=== PATIENT | female | born 1930 | race Caucasian/White ===

== ENCOUNTER 2018-05-25 19:57 | Emergency (ER) | payer MEDICARE, OTHER ==
[~2018-05-25] VITALS: Ht 152.4 cm; Wt 46.9 kg
[~2018-05-25 19:57] MED LIST: AMLODIPINE BESY10 MG PO; ASPIRIN EC325 MG PO; COZAAR100 MG PO; FUROSEMIDE20 MG PO; GABAPENTIN100 MG PO; HEARTBURN RELIE75 M1 PO; IPRAT-ALBUT 0.5-3 ML INH; KLOR-CON20 MEQ PO; LASIX40 MG PO; LATANOPROST2.5 ML OPTH; LOVASTATIN40 MG PO; MACULAR HEALTH1 EACH PO; METAMUCIL0.4 GM PO; METOPROLOL SUCC25 MG PO; METOPROLOL SUCC50 MG PO; MIRALAX17 GM PO; MULTIVITAMINS1 EAC7 PO; NITROGLYCERIN0.4 MG SL; NORCO 5-325 TA1 EACH PO; OMEPRAZOLE20 MG PO; PLAVIX75 MG PO; POTASSIUM CHLO10 MEQ PO; POTASSIUM CHLO20 ME1 PO; SLO-NIACIN500 MG PO; TOPICAINE113 GM TOP; TYLENOL WITH C1 EACH PO; VENTOLIN HFA18 GM INH; VITAMIN D-32000 UNIT PO; VITAMIN D22000 UNIT PO
--- OUTSIDE RECORDS SUMMARY | 2018-05-25 21:38 | XMS ---
PreManage Notification: SURESH SALAZAR Security Preflight Inspector Events No recent Security Events currently on file CRITERIA MET - [facility] - 2 Visits in 30 Days CARE PROVIDERS Alvino Alston DO Primary Care Current PHONE: Unknown Other Current PHONE: Unknown BERTHA ALSTON Primary Care Current PHONE: [phone] [place] has no Care Guidelines for this patient. [facility] MO.) [facility] TOTAL 2 NOTE: Visits indicate total known visits. ED/UCC VISIT TRACKING (12 MO.) 05/25/2018 19:58 [facility] [place] TYPE: Emergency COMPLAINT: - ABNORMAL LABS [facility] INPATIENT VISIT TRACKING (12 MO.) No inpatient visits to display in this time frame [email or web address]
--- NOTE | 2018-05-25 22:19 | EKG ---
[facility] [address] [place], [place] [address] Signed Normal sinus rhythm Cannot rule out Inferior infarct , age undetermined Abnormal ECG No previous ECGs available Confirmed by BOBY AVILA DO ([id number]) on 05/25/2018 10:19:13 PM Electronically Signed By: BOBY AVILA DO 05/25/18 2219 PATIENT NAME: SURESH SALAZAR OCTOBER Electrocardiogram DATE OF : [birth year] PHYSICIAN: BOBY AVILA DO REPORT #: [id number] REPORT IS CONFIDENTIAL AND NOT TO BE RELEASED WITHOUT AUTHORIZATION
== END 2018-05-25 22:01 | disposition short-term general hospital (02) ==
LOC: ED 19:57
PROC: 0T9B70Z Drainage of Bladder with Drainage Device, Via Natural or Artificial Opening (ICD-10-PCS; principal; 2018-05-25)
DX: I21.4 Non-ST elevation (NSTEMI) myocardial infarction (principal); I95.9 Hypotension, unspecified; I13.10 Hypertensive heart and chronic kidney disease without heart failure, with stage 1 through stage 4 chronic kidney disease, or unspecified chronic kidney disease; N18.9 Chronic kidney disease, unspecified; Z95.5 Presence of coronary angioplasty implant and graft; Z95.0 Presence of cardiac pacemaker; Z85.118 Personal history of other malignant neoplasm of bronchus and lung; Z87.891 Personal history of nicotine dependence; Z88.1 Allergy status to other antibiotic agents; Z79.82 Long term (current) use of aspirin; Z79.899 Other long term (current) drug therapy
CPT/HCPCS: 51702; 71045; 80053; 81001; 84484; 85025; 85610; 85730; 93005; 93010; 96361; 96374; 99285-25; J1650; J7030

== ENCOUNTER 2018-08-22 11:21 | Emergency (ER) | payer MEDICARE, OTHER ==
[~2018-08-22] VITALS: Ht 152.4 cm; Wt 48.5 kg
[2018-08-22] MEDS ORDERED: CARVEDILOL12.5 MG PO (12:04)
[2018-08-22] MEDS ORDERED: FUROSEMIDE20 MG PO (12:04)
== END 2018-08-22 14:44 | disposition home or self-care (01) ==
LOC: ED 11:21
DX: I65.21 Occlusion and stenosis of right carotid artery (principal); I12.9 Hypertensive chronic kidney disease with stage 1 through stage 4 chronic kidney disease, or unspecified chronic kidney disease; N18.9 Chronic kidney disease, unspecified; Z87.891 Personal history of nicotine dependence; Z88.1 Allergy status to other antibiotic agents; Z79.899 Other long term (current) drug therapy; Z79.82 Long term (current) use of aspirin
CPT/HCPCS: 99283

== ENCOUNTER 2018-10-29 13:09 | Emergency (ER) | payer MEDICARE, OTHER ==
[~2018-10-29] VITALS: Ht 152.4 cm; Wt 48.7 kg
[~2018-10-29 13:09] MED LIST changes: -AMLODIPINE BESY10 MG PO; +AMLODIPINE BESYL5 MG PO; -ASPIRIN EC325 MG PO; +ASPIRIN EC81 MG PO; +CARVEDILOL12.5 MG PO
[2018-10-29] MEDS ORDERED: ELIQUIS2.5 MG PO (13:20)
[2018-10-29] MEDS ORDERED: PAIN & FEVER500 MG PO (13:27)
[2018-10-29] MEDS ORDERED: GABAPENTIN100 MG PO (16:21)
== END 2018-10-29 17:48 | disposition home or self-care (01) ==
LOC: ED 13:09
DX: G44.89 Other headache syndrome (principal); M48.02 Spinal stenosis, cervical region; I10 Essential (primary) hypertension; I12.9 Hypertensive chronic kidney disease with stage 1 through stage 4 chronic kidney disease, or unspecified chronic kidney disease; N18.4 Chronic kidney disease, stage 4 (severe); Z95.0 Presence of cardiac pacemaker; Z95.5 Presence of coronary angioplasty implant and graft; Z85.118 Personal history of other malignant neoplasm of bronchus and lung; Z85.828 Personal history of other malignant neoplasm of skin; Z88.1 Allergy status to other antibiotic agents; Z79.01 Long term (current) use of anticoagulants; Z79.82 Long term (current) use of aspirin; Z79.899 Other long term (current) drug therapy
CPT/HCPCS: 70450; 72125; 80053; 81001; 85025; 99284-25

== ENCOUNTER 2018-10-30 00:43 | Emergency (ER) | payer MEDICARE, OTHER ==
[~2018-10-30] VITALS: Ht 152.4 cm; Wt 48.7 kg
[~2018-10-30 00:43] MED LIST changes: +ELIQUIS2.5 MG PO; -LATANOPROST2.5 ML OPTH; +LATANOPROST2.5 ML OU; +PAIN & FEVER500 MG PO
--- OUTSIDE RECORDS SUMMARY | 2018-10-30 00:46 | XMS ---
PreManage Notification: SURESH SALAZAR Security Final Cleaner Events No recent Security Events currently on file CRITERIA MET - [facility] - 2 Visits in 30 Days CARE PROVIDERS Alvino Tavarez DO Primary Care Current PHONE: Unknown Other Current PHONE: Unknown ALECIA STONE Primary Care Current PHONE: Unknown [place] has no Care Guidelines for this patient. Ismael VISIT COUNT (12 MO.) 1 [facility] 4 CADEN Gomez TOTAL 5 NOTE: Visits indicate total known visits. ED/UCC VISIT TRACKING (12 MO.) 10/30/2018 00:43 [facility] [place] TYPE: Emergency COMPLAINT: - HEADACHE 10/29/2018 13:09 [facility] [place] TYPE: Emergency COMPLAINT: - HEAD PAIN/NO INJURY 08/22/2018 11:22 [facility] [place] TYPE: Emergency COMPLAINT: - CAROTID THROMBOSIS DIAGNOSES: - Occlusion and stenosis of right carotid artery - Hypertensive chronic kidney disease with stage 1 through stage 4 chronic kidney disease, or unspecified chronic kidney disease - Allergy status to other antibiotic agents status - Personal history of nicotine dependence - Occlusion and stenosis of unspecified carotid artery - Occlusion and stenosis of right carotid artery - halfway (current) use of aspirin - Chronic kidney disease, unspecified - Other retirement (current) drug therapy 05/25/2018 23:07 [facility] TYPE: Emergency DIAGNOSES: - Abnormal Labs - Hypotension 05/25/2018 19:58 [facility] [place] TYPE: Emergency COMPLAINT: - ABNORMAL LABS DIAGNOSES: - Presence of coronary angioplasty implant and graft - Other retirement (current) drug therapy - Personal history of other malignant neoplasm of bronchus and lung - Non-ST elevation (NSTEMI) myocardial infarction - Weakness - Hypotension, unspecified - Hypertensive heart and chronic kidney disease without heart failure, with stage 1 through stage 4 chronic kidney disease, or unspecified chronic kidney disease - Allergy status to other antibiotic agents status - 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
--- NOTE | 2018-10-30 07:41 | EKG ---
[facility] [address] [place] [address] Signed Normal sinus rhythm ST \T\ T wave abnormality, consider inferior ischemia Prolonged QT Abnormal ECG When compared with ECG of 25-MAY-2018 20:03, No significant change was found Confirmed by MICHELINE SIBLEY MD ([id number]) on 10/30/2018 7:41:45 AM Electronically Signed By: MICHELINE SIBLEY MD 10/30/18 0741 PATIENT NAME: SURESH SALAZAR OCTOBER Electrocardiogram DATE OF : [birth year] PHYSICIAN: MICHELINE SIBLEY MD REPORT #: [id number] REPORT IS CONFIDENTIAL AND NOT TO BE RELEASED WITHOUT AUTHORIZATION
== END 2018-10-30 03:17 | disposition home or self-care (01) ==
LOC: ED 00:43
DX: M47.892 Other spondylosis, cervical region (principal); M48.02 Spinal stenosis, cervical region; I12.9 Hypertensive chronic kidney disease with stage 1 through stage 4 chronic kidney disease, or unspecified chronic kidney disease; N18.4 Chronic kidney disease, stage 4 (severe); Z85.828 Personal history of other malignant neoplasm of skin; Z95.0 Presence of cardiac pacemaker; Z95.5 Presence of coronary angioplasty implant and graft; Z85.118 Personal history of other malignant neoplasm of bronchus and lung; Z88.1 Allergy status to other antibiotic agents; Z79.899 Other long term (current) drug therapy; Z79.82 Long term (current) use of aspirin
CPT/HCPCS: 85651; 93005; 93010; 99284-25

== ENCOUNTER 2018-11-06 08:43 | Inpatient (IN) | payer MEDICARE, OTHER ==
[~2018-11-06] VITALS: Ht 152.4 cm; Wt 49.5 kg
--- OUTSIDE RECORDS SUMMARY | 2018-11-06 08:46 | XMS ---
PreManage Notification: SURESH SALAZAR Security Pot Puller Events No recent Security Events currently on file CRITERIA MET - 6 ED Visits in 6 Months - [facility] - 2 Visits in 30 Days CARE PROVIDERS FAREED POSADA [facility] 10/30/2018-Current PHONE: Unknown Alvino Tavarez DO Primary Care Current PHONE: Unknown Harshil Current PHONE: Unknown ALECIA STONE Primary Care Current PHONE: Unknown [place] has no Care Guidelines for this patient. Ismael VISIT COUNT (12 MO.) 1 [facility] 5 CADEN Gomez TOTAL 6 NOTE: Visits indicate total known visits. ED/UCC VISIT TRACKING (12 MO.) 11/06/2018 08:43 [facility] [place] TYPE: Emergency COMPLAINT: - WEAKNESS 10/30/2018 00:43 [facility] [place] TYPE: Emergency COMPLAINT: - HEADACHE 10/29/2018 13:09 [facility] [place] TYPE: Emergency COMPLAINT: - HEAD PAIN/NO INJURY DIAGNOSES: - Chronic kidney disease, stage 4 (severe) - Presence of cardiac pacemaker - technician terminal and repeater (current) use of aspirin - technician terminal and repeater (current) use of anticoagulants - Presence of coronary angioplasty implant and graft - Headache - Personal history of other malignant neoplasm of skin - Other long-term (current) drug therapy - Essential (primary) hypertension - Spinal stenosis, cervical region - Hypertensive chronic kidney disease with stage 1 through stage 4 chronic kidney disease, or unspecified chronic kidney disease - Allergy status to other antibiotic agents status - Other headache syndrome - Personal history of other malignant neoplasm of bronchus and lung 08/22/2018 11:22 [facility] [place] TYPE: Emergency [...] and stenosis of right carotid artery - senior living (current) use of aspirin - Chronic kidney disease, unspecified - Other terminal superintendent (current) drug therapy 05/25/2018 23:07 [facility] TYPE: Emergency DIAGNOSES: - Abnormal Labs - Hypotension 05/25/2018 19:58 [facility] TYPE: Emergency COMPLAINT: - ABNORMAL LABS DIAGNOSES: - Presence of coronary angioplasty implant and graft - Other long-term (current) drug therapy - Personal history of other malignant neoplasm of bronchus and lung - Non-ST elevation (NSTEMI) myocardial infarction - Weakness - Hypotension, unspecified - Hypertensive heart and chronic kidney disease without heart failure, with stage 1 through stage 4 chronic kidney disease, or unspecified chronic kidney disease - Allergy status to other antibiotic agents status - technician terminal and repeater (current) use of aspirin - Personal history of nicotine dependence - Chronic kidney disease, unspecified - Presence of cardiac pacemaker INPATIENT VISIT TRACKING (12 MO.) 05/25/2018 23:07 [facility] TYPE: General Medicine DIAGNOSES: - Hypotension - Dehydration - Non-ST elevation (NSTEMI) myocardial infarction - Abnormal Labs - Hypotension, unspecified - Weakness - Nonspecific elevation of levels of transaminase and lactic acid dehydrogenase [LDH] [email or web address]
--- NOTE | 2018-11-06 14:04 | NUR ---
New admit to the floor. Pt drowsy, confused to place and situation. Vital signs are stable at this time. PT is on ra, resp non labored. PT has notable large red ring the shape of a toilet seat around her posterior thigh and buttock region. Per report pt was found on the toilet seat in her room at this facility in which she resides. Oriented pt to room and call light. Bed alarm intact. Personal supplies and call light within reach. No further needs.
--- NOTE | 2018-11-06 14:16 | NUR ---
SAW PT AND DAUGHTER IN ED EXAM ROOM THIS MORNING. SPOKE AGAIN WITH DAUGHTER CALLIE WALLER [phone] TO MEDICAL FLOOR. DISCUSSED AGAIN THAT DISCHARGE PLAN WILL BE BASED ON WHAT THEY WANT AND HOW SHE DOES HERE. WE DISCUSSED AGAIN POSSIBLE REHAB, HOME HEALTH OR CAREGIVERS. PROVIDED HER CHW CONTACT INFO. ALSO GAVE DAUGHTER HELPING HANDS IN-HOME CARE BROCHURE. QUESTIONS ANSWERED. SPOKE WITH PATIENT IN ROOM. SHE IS AWAKE, KNOWS SHE WAS CONFUSED EARLIER. IS NOW AWARE OF WHERE SHE IS AFTER ASKING STAFF. DR AVIAL ALSO IN AND SPOKE WITH PATIENT AND DAUGHTER. QUESTIONS ANSWERED. DISCUSSED THAT TOP LIFT COMPRESSER SANDEE HOYOS WILL BE SEEING HER GOING FORWARD, ALSO.
--- NOTE | 2018-11-06 16:13 | EKG ---
[facility] [address] [place] [address] Signed Normal sinus rhythm Inferior infarct , age undetermined T wave abnormality, consider lateral ischemia Abnormal ECG When compared with ECG of 30-OCT-2018 00:59, Inferior infarct is now present T wave inversion now evident in Anterior leads Confirmed by BOBY AVILA DO ([id number]) on 11/06/2018 4:13:26 PM Electronically Signed By: BOBY AVILA DO 11/06/18 1613 PATIENT NAME: SURESH SALAZAR OCTOBER Electrocardiogram DATE OF : [birth year] PHYSICIAN: BOBY AVILA DO REPORT #: [id number] REPORT IS CONFIDENTIAL AND NOT TO BE RELEASED WITHOUT AUTHORIZATION
[2018-11-06] MEDS ORDERED: ADVAIR HFA 115-12 GM INH (17:42)
[2018-11-06] MEDS ORDERED: POTASSIUM CHLO10 MEQ PO (17:51)
[2018-11-06] MEDS ORDERED: CARVEDILOL25 MG PO (17:52)
[2018-11-06] MEDS ORDERED: ASPERCREME76.5 GM TOP (17:56)
--- NOTE | 2018-11-06 19:00 | NUR ---
SHIFT REPORT RECEIVED. PATIENT SITTING UP RIGHT IN BED EATING DINNER. LAB IN ROOM FOR BLOOD DRAW. PATIENT DENIES NEEDS. CALL LIGHT IN REACH.
--- NOTE | 2018-11-06 19:12 | NUR ---
CHARGE NURSE REPORT. PT SITTING UP IN BED EATING DINNER, STATES SHE FEELS BETTER SINCE ARRIVING TO M/S FLOOR.
--- NOTE | 2018-11-06 21:30 | NUR ---
EVENING DOSE OF SENNA OFFERED TO PATIENT, SHE DECLINED STATING "I'VE WENT A COUPLE TIMES TODAY". PATIENT IS ORIENTED TO HERSELF, SURROUDNINGS, AND EVENINGS AFTER ARRIVING AT THE ED. UNSURE OF EVENTS PRIOR TO ARRIVAL. PATIENT REPORTS GENERALIZED PAIN, DENIES PRN TYLENOL. NO GI UPSET, BOWEL SOUNDS ACTIVE. 2+ EDEMA NOTED IN YVONNE LOWER EXTREMITIES. ELEAVTED ON PILLOW. PATIENT DECLINED ANY NEEDS. CALL LIGHT IN REACH.
--- NOTE | 2018-11-06 22:00 | NUR ---
DR. AVILA IN ROOM. MANUAL BP ON RIGHT ARM 80/54. ORDERS FOR IV FLUID BOLUS RECEIVED. IV SITE LEAKING ON LEFT AC. NEW SITE PLACED IN RIGHT UPPER ARM. PATIENT REPORTS DIFFICULT WITH ACCURATE BP IN HER RIGHT ARM. MANUAL BP ON LEFT ARM, 145/40. ORDERS TO FINISH BOLUS AND THEN CONTINUE FLUID AT 100ML/HR. PATIENT TALKING WITH MD APPEARED TO HAVE A BETTER UNDERSTANDING OF HER CURRENT STATE, REPORTING THAT SHE KNEW SHE WAS CONFUSED AND WAS VERY WEAK FOR SEVERAL DAYS PRIOR TO ADMISSION. ORIENTED TO PERSON, PLACE AND EVENT. PATIENT REQUEST ASSISTANCE TO THE BSC. CREDENTIALING SPECIALIST AND JERMAN KEITA IN ROOM TO ASSIT. PATIENT IS WEAK AND REQUIRES A 2PA TO STAND AND PIVOT WITH FWW. PATIENT RETURNED TO BED. WARM BLANKET PROVIDED. CALL LIGHT IN REACH.
--- NOTE | 2018-11-06 22:45 | NUR ---
STRUCTURAL STEEL ENGINEER DELIVERED FLAGYL MIXED AFTER PHARMACY HOURS. PATIENT SLEEPING SOUNDLY. DOES NOT WAKE WHILE RN STARTED IV ABX. PATIENT THEN WOKEN WITH PHYSICAL AND VERBAL STIMULI TO TAKE PO MEDS. PATIENT WAS ABLE TO PULL HERSELF INTO SITTING POSITION AND TOLERATED THE PILL WITHOUT DIFFICULTY. PATIENT DENIES ANY FURTHER NEEDS. CALL LIGHT IN REACH.
--- NOTE | 2018-11-07 01:00 | NUR ---
IV ABX INFUSING WITH CONTINUOUS IV FLUIDS, SITE WNL. PATIENT SLEEPING SOUNDLY. RR18. CALL LIGHT IN REACH.
--- NOTE | 2018-11-07 02:58 | NUR ---
PATIENT UP TO BSC WITH 2PA. PATIENT WEAK AND UNSTEADY ON HER FEET. PATIENT HAD SMALL BM. ASSISTED BACK INTO BED. PATIENT REPORTS HER HIPS ARE PAINFUL WITH MOVEMENT. ASSESSED AREA AND NO OBVIOUS SIGNS OF INJURY. REPOSITIONED PATIENT FOR COMFORT. PATIENT STATES "IT'S BETTER WHEN I'M LAYING DOWN". OFFERED PRN TYLENOL, PATIENT DECLINED. ROTOR WINDER IN ROOM FOR VS. CALL LIGHT IN REACH.
--- NOTE | 2018-11-07 05:00 | NUR ---
PATIENT APPEARED TO BE SLEEPING SOUNDLY. WOKE EASILY TO VOICE. PATIENT ORIENTED X4. REPORTS FEELING VERY TIRED BUT DENIES PAIN. ALLOWED PATIENT TO REST. IV FLUIDS PER ORDER. SITE WNL. CALL LIGHT IN REACH.
--- NOTE | 2018-11-07 06:54 | NUR ---
PATIENT SLEPT MOST OF THE SHIFT. IV FLUIDS PER ORDER, MINIMAL OUTPUT. VS STABLE. PATIENT ORIENTED X4 THIS MORNING. HEAVY 2 PERSON ASSIST TO BSC. REGULAR DIET. RIGHT ARM RESTRICTED FOR BP.
--- NOTE | 2018-11-07 07:34 | NUR ---
RECIEVED REPORT FROM ROMAIN ARMENDARIZ. PT RESTING QUIETLY WITH EYES CLOSED IN BED, EASILY AROUSABLE. CALL LIGHT WITHIN REACH.
--- NOTE | 2018-11-07 08:34 | NUR ---
PT ALERT AND ORIENTED X3, ABLE TO TELL US THAT SHE IS IN A HOSPITAL BUT UNABLE TO TELL US LOCATION. ALL OTHER QUESTIONS ANSWERED CORRECTLY. PT BELIEVES THAT HER CONFUSION WAS CAUSED BY MIXED MEDICATIONS THAT SHE IS ON. SENNA AND MIRALAX HELD DUE TO MULTIPLE BOWEL MOVEMENTS THIS AM. PT DECLINES BREAKFAST BUT ACCEPTED AND DRANK A SUPPLMENT DRINK. PT UP TO CHAIR AT THIS TIME. CALL LIGHT WITHIN REACH.
--- NOTE | 2018-11-07 10:45 | NUR ---
PT HAS LINDA AND ERIN RUNNING. VERIFIED WITH PHARMACY WHO STATES THAT IT IS OKAY TO RUN TOGETHER. PT BACK IN BED PER HER REQUEST. CALL LIGHT WITHIN REACH.
--- NOTE | 2018-11-07 11:00 | NUR ---
MAINTENENCE FLUIDS PUT TO STANDBY D/T DC'ING ORDER. ZOSYN STILL INFUSING. PT ASSISTED 2P WITH FWW TO COMMODE FOR SMALL BM THEN BACK TO BED. PT REPORTING ABDOMINAL DISCOMFORT. HEATING PACK PROVIDED. CALL LIGHT IN REACH. DENIES FURTHER NEEDS.
--- NOTE | 2018-11-07 12:42 | NUR ---
Medications reconciled using MARS from facility
--- NOTE | 2018-11-07 13:00 | NUR ---
PER RADIOLOGY DEPARTMENT 1ST CONTRAST TO BE GIVEN AT 1200 AND 2ND CONTRAST TO BE GIVEN AT [address]/ WITH CONTRAST. ORDERS CARRIED OUT.
--- NOTE | 2018-11-07 14:23 | NUR ---
PT OFF FLOOR FOR CT.
--- NOTE | 2018-11-07 14:51 | NUR ---
PT BACK TO FLOOR FROM IMAGING VIA BED. REPORTS PAIN 7/10 IN HEAD. REPORTS THIS PAIN IS RELATED TO ARTHRITIS PAIN IN NECK. PRN TYLENOL GIVEN. PT REFUSING LUNCH. AGREES TO DRINK ENSURE IN PLACE. CALL LIGHT IN REACH.
--- NOTE | 2018-11-07 16:12 | NUR ---
DR GILES UPDATED ON PT INTAKE AND OUTPUT. NEW ORDER FRO LR AT 100ML/HR TO INFUSE.
--- NOTE | 2018-11-07 16:12 | NUR ---
PHYSICAL THERAPY IN TO WORK WITH PT.
--- NOTE | 2018-11-07 16:22 | NUR ---
PT IN HOSPITAL BED RESTING QUIETLY, EASILY AROUSABLE BY SOUND. PT STATES THAT HER PAIN HAS DECREASED IN HER HEAD TO A 2/10. NOTIFIED OF URINE OUPUT FOR PT OF 250ML FOR THIS SHIFT W/ ORDERS TO RESTART LR AT 100ML/HR. PT ENCOURAGED TO EAT DINNER AND ACCEPTED WITH CHICKEN NOODLE SOUP AND GLASS OF ORANGE JUICE. DIETARY NOTIFIED. THERAPY CURRENTLY IN ROOM WITH PT. PT STATES THAT HER LEGS ARE WEAK BUT WAS ABLE TO STAND WITH 1PA. DAUGHTER CONTACTED FACILITY STATING THAT SHE CANCELED PT APPOINTMENT FOR PT AT [facility] TOMORROW. CONTACT INFORMATION FOR [facility] IF WE HAVE ANY FURTHER QUESTIONS IS [phone] AND SPEAK WITH KUMAR. PT HAS NO FURTHER NEEDS/CONCERNS AT THIS TIME.
--- NOTE | 2018-11-07 16:43 | NUR ---
PT URINE OUTPUT FOR SHIFT IS 250ML. BLADDER SCAN REVEALED 546ML. MD NOTIFIED WITH ORDERS TO STRAIGHT CATH PT. ORDERS ENTERED.
--- NOTE | 2018-11-07 17:00 | NUR ---
STRAIGHT CATH PT PER MD ORDER WITH OUTPUT OF 500ML. PT TOLERATED WELL. QUESTIONS ANSWERED. NO CONCERNS/NEEDS AT THIS TIME.
--- NOTE | 2018-11-07 19:12 | NUR ---
CHARGE NURSE REPORT RECEIVED, PT IN BED WITH EYES CLOSED.
--- NOTE | 2018-11-07 20:32 | NUR ---
COOP WITH ASSESSMENT, BRUISING ARMS AND BUTTOCKS, UPPER BACK HIP AREAS, INTACT. PT LAYING IN L SIDE. NO C/O PAIN OR SOB, ON ROOM AIR, IVF INFUSING R UPPER ARM. CALL LIGHT AND FLUIDS AT BEDSIDE
--- NOTE | 2018-11-07 23:37 | NUR ---
RESTING, TURNS SELF IN BED. NO S/SX PAIN. IVF INFUSING W/O PROBLEMS. CALL LIGHT AT BEDSIDE
--- NOTE | 2018-11-08 02:10 | NUR ---
RESTING, NO DISTRESS, TURNS SELF IN BED, ON ROOM AIR. IVF INFUSING W/O PROBLEMS. CALL LIGHT AT BEDSIDE
--- NOTE | 2018-11-08 03:58 | NUR ---
ATTENDS WITH A SCANT AMOUNT OF URINE. UP TO BSC, HAD SMALL SOFT, FORMED BM. NO VOID, BLADDER SCANNED WITH 286CC NOTED IN SCANNER, STRAIGHT CATH W 300CC DARK YELLOW URINE. PROCEDURE EXPLAINED, COOPERATIVE. BRUISING OVER BACK OF LOWER BUTTOCKS AND THIGHTS, AND SMALL BRUISING AREAS OVER BODY HEALING. IVF INFUSING, PT TURNS SELF IN BED, CALL LIGHT AT BEDSIDE
--- NOTE | 2018-11-08 06:14 | NUR ---
PT RESTING, NO DISTRESS, ON ROOM AIR. C/O MILD LEG DISCOMFORT WHEN GETTING UP TO BSC, WAS UNABLE TO VOID, WAS STRAIGHT CATHED PER ORDERS AND AFTER BLADDER SCANNED. HAD SMALL FORMED BM. REDNESS AND BRUISING OVER LOWER BUTTOCKS AND UPPER HIP AREA HEALING. UNSTEADY GAIT NOTED, 1PA/FWW. BACK TO BED. IVF INFUSING W/O PROBLEMS. PT HAS A HX OF FORGETFULNESS, IS ABLE TO RESPOND SLOWLY AND HAS FOLLOWED INSTRUCTIONS. BED ALARM ON. TOLERATING FLUIDS WELL.
--- NOTE | 2018-11-08 06:36 | NUR ---
IV ALARMING, PT WITH EYES CLOSED, RESP EVEN AND UNLABORED. DID NOT WAKE WHEN RN IN ROOM.
--- NOTE | 2018-11-08 07:22 | NUR ---
RECIEVED REPORT FROM ROMAIN RODAS. PT RESTING QUIETLY IN HOSPITAL BED.
--- NOTE | 2018-11-08 09:35 | NUR ---
PT RESTING IN BED WITH CALL LIGHT WITHIN REACH. PT STATES THAT SHE IS HAVING PAIN IN HER LOWER MIDDLE ABDOMEN 07/01. PT SENNA AND MIRLAX HELD DUE TO MULTIPLE LOOSE STOOLS THIS AM. PT HAS NOT URINATED SINCE ON SHIFT WILL CONTINUE TO MONITOR URINE OUTPUT. ASSESSMENT COMPLETE. NO FURTHER CONCERNS/NEEDS AT THIS TIME.
--- NOTE | 2018-11-08 10:25 | NUR ---
PT STATES SHE DOES NOT HAVE TO URINATE AT THIS TIME. BLADDER SCAN DONE WITH 323ML. MD NOTIFIED WITH NO NEW ORDERS AT THIS TIME.
--- NOTE | 2018-11-08 12:59 | NUR ---
PT USED BEDSIDE COMMODE WITH 1PA W/FWW. PT HAD MIXTURE OF LOOSE STOOL AND URINE. POST VOID BLADDER SCAN SHOWED 300ML. PT DECLINE ANYTHING TO EAT FOR LUNCH. PT ACCEPTED ENSURE. PT RESTING QUIETLY IN HOSPITAL BED WITH NO FURTHER CNOCERNS/NEEDS AT THIS TIME.
--- NOTE | 2018-11-08 13:03 | NUR ---
PT WAS RESTING IN BED, COVERS PULLED UP TO HER NECK. SHE SAID SHE WAS WARM, BUT WAS NOT FEELING BETTER.RN'S SHARED WITH ME THAT THEY FEEL SHE IS MAKING POSITIVE STRIDES. PT REQUESTED PRAYER. WILL FOLLOW NEEDED
--- NOTE | 2018-11-08 15:14 | NUR ---
PT RESTING IN BED WITH HEAD OF BED ELEVATED, EATING JELLO AND DRINKING ENSURE. PT DECLINED BREAKFAST AND LUNCH BUT ORDERED DINNER, TOMATO SOUP. PT PLACED ON CONTACT ENTERIC PRECAUTIONS. ASSESSMENT COMPLETE AND IV FLAGYL INFUSING AT THIS TIME. CALL LIGHT WITHIN REACH. NO FURTHER NEEDS/CONCERNS AT THIS TIME.
--- NOTE | 2018-11-08 16:15 | NUR ---
MET WITH PT THIS AFTERNOON TO TALK WITH HER ABOUT HER PLANS FOR WHEN SHE IS READY TO GO HOME. SHE STATES SHE KNOWS SHE WOULD LIKE TO RETURN TO [facility] BUT SHE IS AFRAID THAT SHE WILL BE TOO WEAK TO RETURN THERE IMMEDIATELY. WE TALKED ABOUT HER NEED FOR REHAB, SHE STATED SHE WANTS HER DAUGHTERS INPUT BUT SHE THINKS SHE NEEDS TO GO TO [facility] TO GET [facility]ONG[facility] AND ASKED IF SHE WOULD HAVE TO STAY THERE A LONG TIME. I TOLD HER THAT ALL DEPENDS ON HER. I DID TALK WITH DR GILES AFTER VISITING WITH PT AND BEFORE VISITING WITH HER DAUGHTER THAT SHE WANTED ME TO TALK TO ABOUT PLACING THE PT IN A TRANSITIONAL SWING BED. HE SAID HE THINKS SHE WILL BE A GOOD CANDIDATE FOR THAT. I DID CALL AND TALK WITH PT DAUGHTER CALLIE AT [phone], WE DISCUSSED WHAT THE PT AND I TALKED ABOUT AND THAT SURESH WANTED ME TO TALK WITH HER ABOUT ALL THIS STUFF. WE DISCUSSED [facility], AND I ALSO MENTIONED THAT WE WOULD BE ABLE TO DO A TRANSITIONAL SWING BED WHEN THE PT WAS READY AND THAT DR GILES HAD SAID THAT IS POSSIBLE. CALLIE LIKED THIS IDEA AND SAID [place] IN AM AND SHE WILL DISCUSS THIS OPTION WITH HER MOTHER THEN. SHE THEN STATED THAT SHE WOULD GET [facility] TOMORROW.
--- NOTE | 2018-11-08 17:38 | NUR ---
PT ATTEMPTED TO USE THE BEDSIDE COMMODE WITH NO OUTPUT. PT AMBULATED WITH SBA WITH FWW TO THE CHAIR. PT EATING HER TOMATO SOUP AT THIS TIME. EVENING MEDICATION GIVEN. BLADDER SCAN SHOWS 349 IN BLADDER. PT HAS NO NEEDS/CONCERNS AT THIS TIME. CALL LIGHT WITHIN REACH.
--- NOTE | 2018-11-08 20:23 | NUR ---
JUST HELPED PATIEN BACK INTO BED AFTER TAKING A LITLE WALK.
--- NOTE | 2018-11-08 21:08 | NUR ---
CHARGE NURSE ROUNDING NOTE: SITTING EDGE OF BED, STATED " MY LEGS FEEL BETTER BUT THEY ARE STILL PAINFUL". ON ROOM AIR, ALERT, ANSWERING APPROPRIATELY, IVF INFUSING, BED ALARM ON. PT ON CONTACT/ ENTERIC PRECAUTIONS R/O C DIFF. STOOL SAMPLE SENT TO LAB EARLIER
--- NOTE | 2018-11-08 22:00 | NUR ---
WITH THE HELP OF ROMAIN SNIDER WE GOT PT TO THE BSC AND BACK TO BED WITH HER FWW. BEDSIDE TABLE AND CALL LIGHT IN REACH.
--- NOTE | 2018-11-08 22:04 | NUR ---
PATIENT AWAKE RESTING QUIETLY IN BED. PATIENT HAS NO NEEDS AT THIS TIME. CALL LIGHT IN REACH.
--- NOTE | 2018-11-08 23:36 | NUR ---
PATIENT RESTING QUIETLY IN BED SUPINE, RESPIRATIONS REGULAR AND EVEN AT 18, EYES CLOSED. CALL LIGHT IN REACH.
--- NOTE | 2018-11-09 01:30 | NUR ---
PATIENT RESTING QUIETLY, EYES CLOSED, RESPIRATIONS REGULAR AND EVEN, CALL LIGHT IN REACH.
--- NOTE | 2018-11-09 03:30 | NUR ---
PATIENT RESTING QUIETLY, EYES CLOSED, REPIRATIONS REGULAR ANND EVEN AT 16, CALL LIGHT IN REACH.
--- NOTE | 2018-11-09 07:17 | NUR ---
RECIEVED BEDSIDE REPORT FROM ROMAIN SNIDER. PT RESTING COMFORTABLY, BREATHING EVEN AND UNLABORED. PT VOIDED OVERNIGHT.
--- NOTE | 2018-11-09 10:40 | NUR ---
ASSISTED OT WITH PT TRANSFER AND WALKING TO BATHROOM FOR AM CARES. PT TOLERATED WELL.
--- NOTE | 2018-11-09 11:50 | NUR ---
PT GAVE VERBAL OK TO SPEAK WITH [facility] RE: PT CONDITION AND EXPECTED RETURN DATE
--- NOTE | 2018-11-09 12:00 | NUR ---
SPOKE WITH PATIENT AND FAMILY. DISCUSSED THAT MD AND THERAPY SUGGEST SHE DO A REHAB STAY BEFORE RETURNING HOME TO HER APARTMENT. PT AGREED SHE DOESN'T FEEL SHE CAN GO HOME TO TAKE CARE OF HERSELF AT THIS POINT YET. WE DISCUSSED OPTIONS, SNF STAY, TRANSITIONAL CARE STAY, HOME WITH FAMILY, HOME AND HIRE CAREGIVERS. QUESTIONS ANSWERED FOR PT AND FAMILY. THEY ALL AGREE THAT SHE WOULD LIKE TO STAY ON THE TRANSITIONAL CARE PROGRAM. DISCUSSED THIS, DISCUSSED INSURANCE COVERAGE, CONTINUED THERAPY AND PROGRESSION IN IMPROVEMENT TO STAY ON PROGRAM. PATIENT IS AGREEABLE AND AGAIN QUESTIONS ANSWERED. DISCUSSED THAT WHEN DR GILES THINKS SHE IS NO LONGER ACUTELY ILL, HE WILL LET HER KNOW ANS SHE WILL MOVE STATUS TO SWING BED/TRANSITIONAL CARE. NO MORE QUESTIONS FROM PATIENT OR FAMILY AT THIS TIME. BROCHURE GIVEN FOR TRANSITIONAL CARE PROGRAM.
--- NOTE | 2018-11-09 14:30 | NUR ---
PT RESTING COMFORTABLY. VOIDING SMALL AMOUNTS.
--- NOTE | 2018-11-09 15:00 | NUR ---
PT WOKE UP FROM NAP C/O HEAD PAIN AND BACK PAIN. TYLENOL WITH CODINE GIVEN WITH GOOD RESULTS.
--- NOTE | 2018-11-09 18:06 | NUR ---
PT UP TO VOID SEVERAL TIMES. NO STRAIGHT CATH THIS SHIFT, BLADDER SCAN SHOWS 225ML, VOIDED 100ML. PT COMPAINED OF HEAD AND BACK PAIN, TYLENOL WITH CODINE EFFECTIVE. POOR APPITITE. ENCOURAGE PO FLUIDS AND INTAKE.
--- NOTE | 2018-11-09 20:08 | NUR ---
PATIENT RESTING QUIETLY IN BED. NO NEEDS AT THIS TIME.
--- NOTE | 2018-11-09 21:09 | NUR ---
PAIN MEDICATION GIVEN FOR BENDER AND BACK PAIN 08/29. IV FLUSHES WELL. CALL LIGHT IN REACH. NO OTHER NEEDS AT THIS TIME.
--- NOTE | 2018-11-09 21:52 | NUR ---
CALL CENTER ASSOCIATE ROUNDING NOTE. PT DENIES QUESTIONS OR CONCERNS AT THIS TIME. STATES THAT SHE IS "RECEIVING WONDERFUL CARE." CALL LIGHT IN REACH. ROOM IN VIEW OF RN STATION. WHITE BOARD UPDATED.
--- NOTE | 2018-11-09 23:53 | NUR ---
PATIENT JUST CALLED AND HER BENDER IS BACK AND TYLENOL GIVEN.
--- NOTE | 2018-11-10 00:52 | NUR ---
PATIENT RSTING QUIETLY, SUPINE, RESPIRATIONS REGULAR AND EVEN AT 16, CALL LIGHT IN REACH.
--- NOTE | 2018-11-10 03:00 | NUR ---
PATIENT RESTING QUIETLY SUPINE, EYES CLOSED, RESPIRATIONS REGULAR AND EVEN, CALL LIGHT IN REACH.
--- NOTE | 2018-11-10 04:42 | NUR ---
ROMAIN Malik asked me to try to get patient to use the restroom to see if she could pee. Pt did very well using her walker into the bathroom but had no result.
--- NOTE | 2018-11-10 04:45 | NUR ---
GOT PATIENT UP TO TRY AND VOID AGAIN WITH NO RESULT. CALLED TO INFOR HIM PATIENT'S URINE OUTPUT IS DECREASED AND HAS ONLY HAD 100MLS OUT. DR. GILES SAID TO ,"JUST LEAVE HER IS FOR NOW."
--- NOTE | 2018-11-10 04:52 | NUR ---
ROMAIN Malik asked me to bladder scan patient and she had 222cc. She said she did not feel the urge to go to pee.
--- NOTE | 2018-11-10 05:09 | NUR ---
PATIENT HAS RRESTED WELL MOST OF THE NIGHT, EXCEPT FOR GETTING HER UP TO TRY AND URINATE. PATIENT HAS ONLY VOIDED 100MLS ALL SHIFT. BLADDER SCAN JUST DONE AND IT WAS 222MLS. INFORMED OF DECREASED URINE OUTPUT AND SAID TO JUST LET THE PATIENT BE AT THIS TIME. NO NEW ORDERS.
--- NOTE | 2018-11-10 07:26 | NUR ---
RECIEVED BEDSIDE REPORT FROM ROMAIN SNIDER. PT DROWSY, BUT WAKES EASILY TO VOICE. PT REPORTS NO HEAD PAIN AT THIS TIME. PT DOES NOT LIKE TO DRINK WATER, BUT WILL DRINK ENSURE. ENCOURAGE FLUIDS.
--- NOTE | 2018-11-10 08:23 | NUR ---
PT STATES SHE IS BORED AND DOES NOT WATCH TV. RN OFFERED MAGAZINES, WHICH SHE ACCEPTED. PT IS READING MAGAZINES IN ROOM. PT HAS ENSURE AT BEDSIDE WHICH SHE IS DRINKING. ENCOURAGED WATER INTAKE. PT TOLERATES WELL. VOIDED 200.
--- NOTE | 2018-11-10 10:29 | NUR ---
PT IS VERY ANXIOUS TO GET OUT OF THE HOSPITAL. SHE RECIEVED MAIL THAT SAYS SHE IS LOSING HER MEDICATIONS IF SHE STAYS IN THE HOSPITAL. SHE IS FEARFUL OF LOSING HER MEDICAITONS. RN EXPLAINED THAT SHE IS COVERED WHILE IN THE HOSPITAL, SHE WILL HAVE HER MEDICATIONS WHEN SHE LEAVES. AT THIS TIME SHE IS NOT SAFE TO GO HOME. PT IS VERY WEAK AND NEEDS ASSISTANCE WITH ADLS. RN ADVISED SHE SPEAK WITH THE RE: DISCHARGE PLAN AND GOALS OF CARE.
== END 2018-11-10 11:55 | disposition swing bed (61) | DRG 557 ==
LOC: ED 08:43 → MS 08:44 → ED 08:44 → MS 14:06 → ED 14:06 → MS 14:07
PROVIDERS: ADMIT Student in an Organized Health Care Education/Training Program
DX: M62.82 Rhabdomyolysis (principal); G93.41 Metabolic encephalopathy; N17.9 Acute kidney failure, unspecified; A09 Infectious gastroenteritis and colitis, unspecified; I48.0 Paroxysmal atrial fibrillation; I12.9 Hypertensive chronic kidney disease with stage 1 through stage 4 chronic kidney disease, or unspecified chronic kidney disease; N18.3 Chronic kidney disease, stage 3 (moderate); G44.89 Other headache syndrome; D72.829 Elevated white blood cell count, unspecified; E78.5 Hyperlipidemia, unspecified; I25.10 Atherosclerotic heart disease of native coronary artery without angina pectoris; M19.90 Unspecified osteoarthritis, unspecified site; I73.9 Peripheral vascular disease, unspecified; I77.89 Other specified disorders of arteries and arterioles; K21.9 Gastro-esophageal reflux disease without esophagitis; Z90.2 Acquired absence of lung [part of]; Z95.0 Presence of cardiac pacemaker; Z85.820 Personal history of malignant melanoma of skin; Z95.1 Presence of aortocoronary bypass graft; Z98.61 Coronary angioplasty status; Z85.118 Personal history of other malignant neoplasm of bronchus and lung; Z88.3 Allergy status to other anti-infective agents; Z86.73 Personal history of transient ischemic attack (TIA), and cerebral infarction without residual deficits; Z79.02 Long term (current) use of antithrombotics/antiplatelets; Z79.82 Long term (current) use of aspirin; Z79.899 Other long term (current) drug therapy
CPT/HCPCS: 36415; 51701; 51798; 70450; 71045; 73502; 74176; 80048; 80053; 81001; 82140; 82533; 82550; 82607; 83605; 83735; 83880; 84100; 84443; 84484; 85007; 85025; 85032; 87040; 87493; 93005; 93010; 94640; 97110; 97116; 97162; 97165; 97530; 97535; 99285-25; J1956; J2543; J7030; J7060; J7120

== ENCOUNTER 2019-02-03 13:27 | Inpatient (IN) | payer MEDICARE, OTHER ==
[~2019-02-03] VITALS: Ht 152.4 cm; Wt 47.6 kg
[~2019-02-03 13:27] MED LIST changes: +ADVAIR HFA 115-12 GM INH; +ASPERCREME76.5 GM TOP; +CARVEDILOL25 MG PO
--- OUTSIDE RECORDS SUMMARY | 2019-02-03 13:30 | XMS ---
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 E.DLazara VISIT COUNT (12 MO.) [address] [id number] [facility]. TOTAL 8 NOTE: Visits indicate total known visits. ED/UCC VISIT TRACKING (12 MO.) 02/03/2019 13:28 [facility] TYPE: Emergency COMPLAINT: - LETHARGY 12/20/2018 18:53 [facility] TYPE: Emergency COMPLAINT: - POSS STROKE DIAGNOSES: - Presence of coronary angioplasty implant and graft - Allergy status to other antibiotic agents status - Presence of cardiac pacemaker - Hypotension, unspecified - exterminator termite (current) use of aspirin - Chronic kidney disease, stage 4 (severe) - Other terminal operations supervisor (current) drug therapy - exterminator termite (current) use of anticoagulants - Hypertensive heart and chronic kidney disease without heart failure, with stage 1 through stage 4 chronic kidney disease, or unspecified chronic kidney disease - Personal history of other malignant neoplasm of skin - Allergy status to other drugs, medicaments and biological substances status - Cardiogenic shock - Personal history of nicotine dependence - Acute kidney failure, unspecified - Personal history of other malignant neoplasm of bronchus and lung - Weakness 11/06/2018 08:43 [facility] TYPE: Emergency COMPLAINT: - RHABDO 10/30/2018 00:43 [facility] TYPE: Emergency COMPLAINT: - HEADACHE DIAGNOSES: - Other spondylosis, cervical region - Other custodial (current) drug therapy - Allergy status to other antibiotic agents status - Headache - Spinal stenosis, cervical region - Presence of cardiac pacemaker - Personal history of other malignant neoplasm of bronchus and lung - Chronic kidney disease, stage 4 (severe) - Hypertensive chronic kidney disease with stage 1 through stage 4 chronic kidney disease, or unspecified chronic kidney disease - Personal history of other malignant neoplasm of skin - exterminator termite (current) use of aspirin - Presence of coronary angioplasty implant and graft 10/29/2018 13:09 [facility] TYPE: Emergency COMPLAINT: - HEAD PAIN/NO INJURY DIAGNOSES: - Chronic kidney disease, stage 4 (severe) - Presence of cardiac pacemaker - exterminator termite (current) use of aspirin - exterminator termite (current) use of anticoagulants - Presence of coronary angioplasty implant and graft - Headache - Personal history of other malignant neoplasm of skin - Other custodial (current) drug therapy - Essential (primary) hypertension [...] and stenosis of right carotid artery - USP (current) use of aspirin - Chronic kidney disease, unspecified - Other terminal operations supervisor (current) drug therapy [facility]: Emergency DIAGNOSES: - Abnormal Labs - Hypotension 05/25/2018 19:[address] [facility] TYPE: Emergency COMPLAINT: - ABNORMAL LABS DIAGNOSES: - Presence of coronary angioplasty implant and graft - Other terminal operations supervisor (current) drug therapy - Personal history of other malignant neoplasm of bronchus and lung - Non-ST elevation (NSTEMI) myocardial infarction - Weakness - Hypotension, unspecified - Hypertensive heart and chronic kidney disease without heart failure, with stage 1 through stage 4 chronic kidney disease, or unspecified chronic kidney disease - Allergy status to other antibiotic agents status - USP (current) use of aspirin - Personal history of nicotine dependence - Chronic kidney disease, unspecified - Presence of cardiac pacemaker INPATIENT VISIT TRACKING (12 MO.) 12/21/2018 02:52 [facility] TYPE: Infectious Disease DIAGNOSES: - Hypotension, unspecified - Enterocolitis due to Clostridium difficile, not specified as recurrent - Acute kidney failure, unspecified - Diarrhea, unspecified - Anemia, unspecified - Acute on chronic systolic (congestive) heart failure - Sepsis, unspecified organism - Shock, unspecified 11/10/2018 11:55 [facility] TYPE: Medical Surgical COMPLAINT: - RHABDOMYOLYSIS DIAGNOSES: - Hyperlipidemia, unspecified - exterminator termite (current) use of opiate analgesic - Gastro-esophageal reflux disease without esophagitis - Peripheral vascular disease, unspecified - Paroxysmal atrial fibrillation - Occlusion and stenosis of unspecified carotid artery - Presence of aortocoronary bypass graft - exterminator termite (current) use of aspirin - Presence of cardiac pacemaker - Polyosteoarthritis, unspecified - Allergy status to other anti-infective agents status - Gastro-esophageal reflux disease without esophagitis - exterminator termite (current) use of aspirin - Personal history of other malignant neoplasm of bronchus and lung - Personal history of malignant melanoma of skin - Hyperlipidemia, unspecified - Infectious gastroenteritis and colitis, unspecified - USP (current) use of antithrombotics/antiplatelets - Hypertensive chronic kidney disease with stage 1 through stage 4 chronic kidney disease, or unspecified chronic kidney disease - Presence of cardiac pacemaker - Personal history of other malignant neoplasm of bronchus and lung - Acquired absence of lung [part of] - Occlusion and stenosis of unspecified carotid artery - exterminator termite (current) use of antithrombotics/antiplatelets - USP (current) use of opiate analgesic - USP (current) use of inhaled steroids - Presence of coronary angioplasty implant and graft - Dysphagia, unspecified - Paroxysmal atrial fibrillation - Rectal prolapse - Personal history of other malignant neoplasm of skin - exterminator termite (current) use of inhaled steroids - Allergy status to other anti-infective agents status - Presence of coronary angioplasty implant and graft - Personal history of other malignant neoplasm of skin - Polyosteoarthritis, unspecified - Other custodial (current) drug therapy - Atherosclerotic heart disease of [place] coronary artery without angina pectoris - Chronic obstructive pulmonary disease, unspecified - Chronic obstructive pulmonary disease, unspecified - Personal history of malignant melanoma of skin - Infectious gastroenteritis and colitis, unspecified - Chronic kidney disease, stage 3 (moderate) - Personal history of transient ischemic attack (TIA), and cerebral infarction without residual deficits - Presence of aortocoronary bypass graft - Peripheral vascular disease, unspecified - Chronic pain syndrome - Anorexia - Dysphagia, unspecified - Hypertensive chronic kidney disease with stage 1 through stage 4 chronic kidney disease, or unspecified chronic kidney disease - Rectal prolapse - Acquired absence of lung [part of] - Chronic pain syndrome - Atherosclerotic heart disease of [place] coronary artery without angina pectoris - Chronic kidney disease, stage 3 (moderate) - Other custodial (current) drug therapy - Weakness - Anorexia - Personal history of transient ischemic attack (TIA), and cerebral infarction without residual deficits 11/06/2018 14:06 [facility] TYPE: Medical Surgical COMPLAINT: - RHABDOMYOLYSIS DIAGNOSES: - Peripheral vascular disease, unspecified - Infectious gastroenteritis and colitis, unspecified - Unspecified osteoarthritis, unspecified site - Hyperlipidemia, unspecified - Other custodial (current) drug therapy - Gastro-esophageal reflux disease without esophagitis - Acute kidney failure, unspecified - Paroxysmal atrial fibrillation - Elevated white blood cell count, unspecified - Rhabdomyolysis - Metabolic encephalopathy - Coronary angioplasty status - USP (current) use of antithrombotics/antiplatelets - Personal history of malignant melanoma of skin - Presence of aortocoronary bypass graft - Personal history of other malignant neoplasm of bronchus and lung - Hypertensive chronic kidney disease with stage 1 through stage 4 chronic kidney disease, or unspecified chronic kidney disease - Atherosclerotic heart disease of [place] coronary artery without angina pectoris - Chronic kidney disease, stage 3 (moderate) - Allergy status to other anti-infective agents status - Acquired absence of lung [part of] - Personal history of transient ischemic attack (TIA), and cerebral infarction without residual deficits - exterminator termite (current) use of aspirin - Presence of cardiac pacemaker - Other specified disorders of arteries and arterioles - Other headache syndrome [facility]2018 23[facility]07 [facility] DIAGNOSES: - Hypotension - Dehydration - Non-ST elevation (NSTEMI) myocardial infarction - Abnormal Labs - Hypotension, unspecified - Weakness - Nonspecific elevation of levels of transaminase and lactic acid dehydrogenase [LDH] [email or web address]
--- NOTE | 2019-02-04 09:17 | EKG ---
[facility] [address] [place] [address] Signed Normal sinus rhythm Cannot rule out Inferior infarct , age undetermined Abnormal ECG When compared with ECG of 20-DEC-2018 19:27, No significant change was found Confirmed by HARITHA GILES MD ([id number]) on 02/04/2019 9:17:39 AM Electronically Signed By: HARITHA GILES MD 02/04/19 0917 PATIENT NAME: MARTIN,SURESH OCTOBER Electrocardiogram DATE OF : [birth year] PHYSICIAN: HARITHA GILES MD REPORT #: [id number] REPORT IS CONFIDENTIAL AND NOT TO BE RELEASED WITHOUT AUTHORIZATION
== END 2019-02-03 21:25 | DRG 683 ==
LOC: ED 13:27 → CCU 17:27
PROVIDERS: ADMIT Internal Medicine
PROC: 5A12012 Performance of Cardiac Output, Single, Manual (ICD-10-PCS; principal; 2019-02-03)
PROC: 0BH17EZ Insertion of Endotracheal Airway into Trachea, Via Natural or Artificial Opening (ICD-10-PCS; 2019-02-03)
DX: N17.9 Acute kidney failure, unspecified (principal); A04.72 Enterocolitis due to Clostridium difficile, not specified as recurrent; K92.1 Melena; N18.3 Chronic kidney disease, stage 3 (moderate); E86.0 Dehydration; T50.1X5A Adverse effect of loop [high-ceiling] diuretics, initial encounter; T46.5X5A Adverse effect of other antihypertensive drugs, initial encounter; K21.9 Gastro-esophageal reflux disease without esophagitis; R00.0 Tachycardia, unspecified; I25.10 Atherosclerotic heart disease of native coronary artery without angina pectoris; I48.0 Paroxysmal atrial fibrillation; I73.9 Peripheral vascular disease, unspecified; I65.29 Occlusion and stenosis of unspecified carotid artery; J44.9 Chronic obstructive pulmonary disease, unspecified; E78.5 Hyperlipidemia, unspecified; G89.4 Chronic pain syndrome; D64.9 Anemia, unspecified; Z90.2 Acquired absence of lung [part of]; Z95.0 Presence of cardiac pacemaker; Z98.61 Coronary angioplasty status; Z85.118 Personal history of other malignant neoplasm of bronchus and lung; Z88.1 Allergy status to other antibiotic agents; Z88.8 Allergy status to other drugs, medicaments and biological substances; Z79.02 Long term (current) use of antithrombotics/antiplatelets; Z79.82 Long term (current) use of aspirin; Z79.51 Long term (current) use of inhaled steroids; Z79.899 Other long term (current) drug therapy
CPT/HCPCS: 31500; 36415; 71045; 80053; 81001; 82570; 83605; 83735; 83880; 84300; 84484; 84540; 85025; 86850; 86900; 86901; 86920; 92950; 93005; 93010; 94799; J0171; J2270; J7040; J7120